=== PATIENT | male | born 1975 | race Caucasian/White ===

== ENCOUNTER 2017-05-27 14:30 | Emergency (ER) | payer OTHER ==
[2017-05-27 14:44] VITALS: BP 122/75; PULSE 55; BMI 21.2
[2017-05-27] MEDS ORDERED: SODIUM CHLORIDE 0.9% 1000 ML INFUS.BAG IV ONE (15:32)
[2017-05-27] MEDS ORDERED: morphine CARPU-JECT 4 MG/1 ML DISP.SYRIN IVPUSH ONE (15:32)
--- NOTE | 2017-05-27 15:32 | PDOC ---
History of Present Illness - General History Source: Patient Exam Limitations: No Limitations - History of Present Illness Initial Comments: 05/27/17 16:39 The patient is a 41 year old male, with no significant past medical history who presents to the emergency department with right back/flank pain. The patient reports having acute onset of 10/10 right flank and abdominal pain. He notes his pain is constant in nature. He does note his pain is improving with time, and upon ED arrival ranks his pain a 6/10 in pain intensity. He denies any radiation of his pain down to his groin. He denies any recent fevers, chills, headache or dizziness. He denies any recent nausea, vomit, diarrhea or constipation. He denies any recent chest pain or shortness of breath. He denies any recent dysuria, frequency, urgency or hematuria. Allergies: NKA Past surgical history: None reported. Social History: Nonsmoker. Denies EtOH use and recreational drug use. Primary Care Physician: <Jimenez Sharma - Last Filed: 05/27/17 16:39> <Joel Contreras - Last Filed: 05/27/17 18:54> - General Chief Complaint: Pain, Acute Stated Complaint: LOW BACK PAIN Time Seen by Provider: 05/27/17 15:32 Past History <Jimenez Sharma - Last Filed: 05/27/17 16:39> - Past Medical History COPD: No - Suicide/Smoking/Psychosocial Hx Smoking History: Never smoked Have you smoked in the past 12 months: No Information on smoking cessation initiated: No Hx Alcohol Use: No Drug/Substance Use Hx: No Substance Use Type: None <Joel Contreras - Last Filed: 05/27/17 18:54> - Past Medical History Allergies/Adverse Reactions: Allergies Allergy/AdvReac Type Severity Reaction Status Date / Time No Known Allergies Allergy Verified 05/27/17 14:44 Home Medications: Ambulatory Orders Tamsulosin HCl [Flomax] 0.4 mg PO DAILY 4 Days #4 capsule 05/27/17 Tramadol HCl 50 mg PO TID #6 tablet MDD 3 05/27/17 Review of Systems - Review of Systems Able to Perform ROS?: Yes Comments:: 05/27/17 16:28 A complete review of 10 out of 10 review of systems is taken and is negative apart from what is previously mentioned below and in the HPI. <Jimenez Sharma - Last Filed: 05/27/17 16:39> *Physical Exam - Vital Signs Last Vital Signs Temp Pulse Resp BP Pulse Ox 98.7 F 55 L 18 122/75 100 05/27/17 14:30 05/27/17 14:30 05/27/17 14:30 05/27/17 14:30 05/27/17 14:30 - Physical Exam Comments: 05/27/17 16:39 Vitals: Triage Vital signs reviewed General Appearance: no acute distress, well nourished well developed, Head: Atraumatic, normocephalic Neck: Supple;No Nuchal rigidity Chest Wall: Nontender Cardiac: Regular rate and rhythm, no murmurs, no rubs, no gallops, Lungs: Clear to auscultation bilateral, good air movement bilaterally, Abdomen: Soft, Right CVA tenderness, normal bowel sounds, Extremities: Full range of motion to all extremities, no cyanosis, clubbing, or edema Skin: Warm and dry, no rashes or lesions, no petechiae Neuro: AOX3; Cranial Nerves 2-12 grossly c intact, Strength intact to all extremities, Sensation intact to all extremities, gait normal Psych: normal mood, normal affect <Jimenez Sharma - Last Filed: 05/27/17 16:39> - Vital Signs Last Vital Signs Temp Pulse Resp BP Pulse Ox 98.7 F 55 L 18 122/75 100 05/27/17 14:30 05/27/17 14:30 05/27/17 14:30 05/27/17 14:30 05/27/17 14:30 <Joel Contreras - Last Filed: 05/27/17 18:54> ED Treatment Course - LABORATORY CBC & Chemistry Diagram: 05/27/17 16:15 05/27/17 16:15 - Medications Given in the ED: ED Medications Discontinued Medications Generic Name Dose Route Start Last Admin Trade Name Freq PRN Reason Stop Dose Admin Morphine Sulfate 4 mg 05/27/17 15:32 05/27/17 16:14 Morphine Injection - IVPUSH 05/27/17 15:33 4 mg ONCE ONE Administration Sodium Chloride 1,000 ml 05/27/17 15:32 05/27/17 16:15 Normal Saline - IV 05/27/17 15:33 1,000 ml ONCE ONE Administration <Jimenez Sharma - Last Filed: 05/27/17 16:39> - LABORATORY CBC & Chemistry Diagram: 05/27/17 16:15 05/27/17 16:15 <BenJoel - Last Filed: 05/27/17 18:54> Medical Decision Making - Medical Decision Making 05/27/17 16:28 The patient is a 41 year old male, with no significant past medical history who presents to the emergency department with right back/flank pain. The patient reports having acute onset of 10/10 pain that is constant in nature. Plan: 1.CBC/Labs 2.Pain Meds 4.Abdomen CT 5.Re-evaluate. <Jimenez Sharma - Last Filed: 05/27/17 16:39> - Medical Decision Making Differential diagnosis includes most likely kidney stone less likely gallbladder stone less likely appendicitis We'll check labs pain meds IV fluids and CT abdomen and pelvis CT with evidence of renal colic pain improved we'll discharge with urology follow-up Findings, the need for follow-up, strict return instructions discussed with patient. <oJel Contreras - Last Filed: 05/27/17 18:54> *DC/Admit/Observation/Transfer - Attestations Scribe Attestion: 05/27/17 16:28 Documentation prepared by Jimenez Sharma, acting as medical office assistant for Joel Contreras MD, /DO. <Jimenez Sharma - Last Filed: 05/27/17 16:39> - Discharge Dispostion Admit: No <Joel Contreras - Last Filed: 05/27/17 18:54> Diagnosis at time of Disposition: Renal colic - Referrals Referrals: Sher Solorzano MD [Primary Care Provider] - Jai Sanchez MD [Staff Physician] - - Patient Instructions Printed Discharge Instructions: Kidney Stones -- Adult Additional Instructions: Drink plenty fluids. Take 2 tabs Aleve twice a day for the next 3 days. Take Flomax as prescribed. Tramadol as prescribed for more severe pain. When urinating urinate through a urine strainer. Follow-up with Dr. Sanchez urology this week. Return to the emergency department immediately for any fever vomiting severe uncontrollable pain or for any concerns. - Post Discharge Activity Forms/Work/School Notes: Back to Work
[2017-05-27] MEDS ORDERED: morphine SULFATE 4 MG/ML VIAL ONE (15:56)
[2017-05-27 16:31] LABS: BASO % 0.3 % (0-2.0); EOS % 0.5 % (0-4.5); HEMATOCRIT 43.6 % (35.4-49); HEMOGLOBIN 14.8 GM/dL (11.7-16.9); LYMPH % 7.2 % (8-40); MCH 32.6 pg (25.7-33.7); MEAN CELL VOLUME 95.8 fl (80-96); MEAN PLT VOLUME 8.9 fl (7.5-11.1); MONO % 4.4 % (3.8-10.2); NEUT % 87.6 % (42.8-82.8); PLATELET COUNT 217 K/MM3 (134-434); RBC 4.54 M/mm3 (4.00-5.60); RDW 14.2 % (11.9-15.9); WHITE BLOOD COUNT 13.4 K/mm3 (4.0-10.0)
[2017-05-27] MEDS ORDERED: KETOROLAC TROMETHAMINE 30 MG/1 ML VIAL IVPUSH ONE (18:25)
[2017-05-27 18:51] LABS: CALCIUM 9.1 mg/dL (8.5-10.1); CHLORIDE 106 mmol/L (98-107); POTASSIUM 4.1 mmol/L (3.5-5.1); SODIUM 140 mmol/L (136-145)
[2017-05-27 18:57] LABS: ALBUMIN 4.2 g/dl (3.4-5.0); ALK PHOS 54 U/L (45-117); ANION GAP 8 (8-16); BILIRUBIN,TOTAL 0.4 mg/dL (0.2-1.0); BLOOD UREA NITROGEN 18 mg/dL (7-18); CO2 26 mmol/L (21-32); CREATININE 0.9 mg/dL (0.7-1.3); GLUCOSE,RANDOM 82 mg/dL (74-106); SGOT/AST 19 U/L (15-37); SGPT/ALT 13 U/L (12-78); TOT PROT 7.3 g/dl (6.4-8.2)
[2017-05-27] MEDS ORDERED: KETOROLAC TROMETHAMINE 30 MG/1 ML VIAL ONE (19:04)
[2017-05-27 19:12] VITALS: TEMP 98.1
== END 2017-05-27 19:12 | disposition home or self-care (01) ==
LOC: JER 14:30
PROC: 3E033NZ Introduction of Analgesics, Hypnotics, Sedatives into Peripheral Vein, Percutaneous Approach (ICD-10-PCS; principal; 2017-05-27)
PROC: 3E0333Z Introduction of Anti-inflammatory into Peripheral Vein, Percutaneous Approach (ICD-10-PCS; 2017-05-27)
DX: N13.2 Hydronephrosis with renal and ureteral calculous obstruction (principal)
CPT/HCPCS: 36415; 74176-TC; 80053; 85025; 99283-25; J7030